=== PATIENT | male | born 1960 | race Hispanic/Latino ===

== ENCOUNTER 2017-01-05 16:10 | Emergency (ER) | payer OTHER ==
[~2017-01-05] VITALS: Ht 167.6 cm; Wt 104.5 kg
[2017-01-05 16:38] VITALS: BP 135/88; PULSE 68; RESP 16; O2SAT 98
--- NOTE | 2017-01-05 16:54 | ED.REPORT ---
HPI-Extremity Problem Upper Date of Service Jan 05, 2017 ED Provider: Arie Kc MD Patient is a 56 year old male who presents to the ED complaining of left thumb pain secondary to a work injury that occurred just prior to arrival. Patient was lifting a heavy object and jammed his left thumb and is currently experiencing pain at the base of the thenar eminence. He is able to flex and extend but reports pain with movement. He denies any weakness or numbness to the area. Nursing Notes Stated Complaint: LEFT THUMB PAIN Chief Complaint: Extremity Trauma Nursing Notes Reviewed: Yes Allergies: Coded Allergies: No Known Allergies (Unverified Allergy, Unknown, 02/23/14) General Time Seen by MD: 16:42 Chief Complaint Finger injury left 1 Hx Obtained From: Patient Arrived By: Walk-in Onset Occurred: Just prior to arrival Symptom Duration: Since onset Context: Occurred at: Workplace Location: : Finger left 1 Quality: Painful Severity: Current: Mild Severity: Maximum: Mild Pertinent Negative: Pt denies other symptoms Recent Healthcare: No recent doctor visit, No recent hospitalization Past Medical History Past Medical History Incarcerated hernia; otherwise healthy Past Surgical History Hernia repair Smoking History Unknown if Ever Smoker Social History Other Social History: Good social support, Local resident Ambulatory Status Independent Review of Systems Musculoskeletal: Reports: Joint pain (Left thumb pain), Joint swelling (Left thumb swelling) Neurologic: Denies: Numbness, Weakness Complete sys rev & neg: except as marked. Physical Exam Initial Vital Signs Vital Signs (First) Date Time Temp Pulse Resp B/P Pulse Ox O2 Delivery O2 Flow Rate FiO2 01/05/17 16:38 36.3 68 16 135/88 98 Room Air Initial VS: Reviewed Head / Eyes: Atraumatic, Normocephalic, PERRL Neck: Supple, Non-tender, Full range of motion Lower Extremities: Vascular intact, Neuro intact, No swelling, No tenderness Skin: Warm, Dry, No cyanosis Neurologic: Alert, Oriented, Nonfocal Psychiatric: Mood/affect normal, Behavior normal, Normal thought content General/Constitutional: Awake, Alert, No acute distress, Well appearing, Well developed Respiratory / Chest: Atraumatic, No respiratory distress Cardiovascular: Peripheral circulation NL, Pulses = bilaterally Upper Extremity / MS: Atraumatic, Inspection NL, Neurologic intact, Vascular intact Wrist / Hand: Atraumatic, No deformity (No bony deformity), Neurologic intact, Vascular intact Left Thumb: Positive: Tenderness present... (thenar eminence), Negative: Deformity present..., ROM reduced HAND: Good cap refill Interpretation & Diagnostics X-Ray Interpretation Xray Interpretation: IMPRESSION: No fracture. 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 Dictated by: Dany Paul M.D. on 01/05/2017 at 17:11 X-Ray Ordered: Wrist left Interpretation / Wet Read by: Interpret - Radiologist Xray Interpretation: IMPRESSION: No fracture. Mild osteoarthritis as above. Dictated by: Dany Paul M.D. on 01/05/2017 at 17:34 X-Ray Ordered: Hand left Interpretation / Wet Read by: Interpret - Radiologist Re-Eval/Medical Decision Med Decision/Clinical Course Patient is a 56 year old male who presents to the ED complaining of left thumb pain secondary to a work injury that occurred just prior to arrival. Patient was lifting a heavy object and jammed his left thumb and is currently experiencing pain at the base of the thenar eminence. He is able to flex and extend but reports pain with movement. He denies any weakness or numbness to the area. Plain films of the wrist and hand were obtained as below: No fracture. 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 Here in the emergency department the patient was provided with an ice pack and placed in a Velcro thumb spica splint. There is no evidence of fracture or neurovascular injury. Suspicion for occult scaphoid fracture is relatively low though he is then advised to follow-up with his primary care physician for repeat x-rays in 1 week. That being said, he has no scaphoid tenderness on examination. I suspect the patient's injury is likely related to sprain. There is no evidence of ligamentous instability. Prior to discharge follow-up and return precautions were reviewed in detail with the patient who verbalized understanding and agreement with the plan. The patient was discharged in stable condition. Re-Evaluation/Progress : Time of Eval: 17:26 Patient Status: Condition improved Re-Evaluation/Progress Note: Pt is rechecked. He is informed of his reassuring examination and the plan to discharge with follow up. All questions about the intended treatment plan are addressed. Counseled Regarding: Diagnosis, Need for follow-up, When/why to return to ED Discharge & Departure Impression: Primary Impression: Thumb injury Encounter type: initial encounter Laterality: left Qualified Code: S69.92XA - Unspecified injury of left wrist, hand and finger(s), initial encounter Additional Impressions: Left thumb sprain Encounter type: initial encounter Sprain of finger site: unspecified site Qualified Code: S63.602A - Unspecified sprain of left thumb, initial encounter Pain of left thumb Disposition: Home Discharge Condition All VS Reviewed: Yes Condition: Improved Patient Instructions: Finger Sprain (ED) Additional Instructions: Thank you for seeking care at emergency room. Your X-ray was negative for fracture. Take 1-2 200 mg of ibuprofen every 4 hours as needed for pain. You should follow-up with your primary doctor in the next week. You should return to the ED immediately if you develop worsening pain, weakness , numbness/tingling, signs of infection (fevers, chills, redness. swelling) or any other concerning signs or symptoms. Thank you for letting us partake in your care today. [employer] [place] por la bsqueda de atencin en urgencias. [place] radiografa fue negativa para la fractura. [place] 1-2 200 mg de ibuprofeno cada 4 horas segn sea necesario para el dolor. Deberas de seguimiento con ball[place]os mdico de atencin primaria en la prxima semana. Usted debe volver al ED inmediatamente si desarrolla empeoramiento del dolor, debilidad, entumecimiento/hormigueo, signos de infeccin (fiebre, escalofros, hinchazn enrojecimiento.) o cualquier otro en cuanto a signos o sntomas. [place] por dejarnos participar en ballesteros atencin hoy en da. [facility] Scribe Attestation Portions of this note were transcribed by Mohit Winkler. I, Dr. Kc personally performed the history, physical exam and medical decision-making; I reviewed and confirmed the accuracy of the information in the transcribed note. Signed by: Lei Chen, 01/05/17 [id number]. copies to: [facility] Arie Kc MD Jan 05, 2017 16:54 MOHIT WINKLER Jan 05, 2017 17:07
--- NOTE | 2017-01-05 17:19 | DRSVH ---
PROCEDURE: X-RAY LEFT WRIST COMPLETE, MINIMUM THREE VIEWS ([id number]) INDICATIONS: injury TECHNIQUE: 4 views of the wrist were acquired. COMPARISON: None. FINDINGS: Bones: No fractures or dislocations. No suspicious bony lesions. There is diffuse degenerative spu rring and a probable degenerative cyst with sclerotic margin seen in the scaphoid measuring 5 mm Soft tissues: No suspicious soft tissue calcifications. IMPRESSION: No fracture. 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 Dictated by: Dany Paul M.D. on 01/05/2017 at 17:11 Approved by: Dany Paul M.D. on 01/05/2017 at 17:17
--- NOTE | 2017-01-05 17:37 | DRSVH ---
PROCEDURE: X-RAY LEFT HAND, MINIMUM THREE VIEWS ([id number]) INDICATIONS: injury TECHNIQUE: 3 views of the hand(s) acquired. COMPARISON: None. FINDINGS: Bones: No fractures or dislocations. Carpal bones are normally aligned. No suspicious bony lesions . Probable chronic cyst projects in the scaphoid. There is mild osteoarthritis at the first CMC, int erphalangeal and triscaphe joints Soft tissues: No suspicious soft tissue calcifications. IMPRESSION: No fracture. Mild osteoarthritis as above. Dictated by: Dany Paul M.D. on 01/05/2017 at 17:34 Approved by: Dany Paul M.D. on 01/05/2017 at 17:35
[2017-01-05 18:32] VITALS: BP 131/86; PULSE 65; RESP 16; O2SAT 97
== END 2017-01-05 18:33 | disposition home or self-care (01) ==
LOC: SED 16:10
DX: S63.602A Unspecified sprain of left thumb, initial encounter (principal); X50.0XXA Overexertion from strenuous movement or load, initial encounter; Y92.59 Other trade areas as the place of occurrence of the external cause; Y93.89 Activity, other specified; Y99.0 Civilian activity done for income or pay; I10 Essential (primary) hypertension; K21.9 Gastro-esophageal reflux disease without esophagitis; F17.200 Nicotine dependence, unspecified, uncomplicated